=== PATIENT | female | born 1960 | race African-American/Black ===

== ENCOUNTER 2017-09-11 19:23 | Observation (INO) | payer OTHER ==
[~2017-09-11] VITALS: Ht 170.2 cm; Wt 90.0 kg
[~2017-09-11 19:23] MED LIST: CLIN1CAP6 PO; CLON.2 PO; CLOP75 PO; DIAZ5 PO; FURO20 PO; GABA300C3 PO; GLUC1000 PO; LEVEMIR SQ; LOSA50TA PO; NOVOLOGSS SQ; PRAV20 PO
--- NOTE | 2017-09-11 19:32 | PD ---
HPI Chief Complaint: altered mental status Time Seen by Provider: 19:28 Travel History International Travel<30 days: No Contact w/Intl Traveler<30days: No History of Present Illness HPI The patient is a 56 year old female who presents to the [facility] emergency department with a history of arriving to work with confusion. The patient on arrival was noted by the staff to be leaning against the wall near the time clock. The patient reported to the nursing staff that the patient has had difficulty keeping her blood sugar up today. 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 The patient's initial blood sugar on arrival here is 117. The patient was given by mouth hydration and her blood sugar came up to 129. She reports that throughout the day today she has been taking multiple glucose tablets and ingesting doughnuts to maintain her blood sugar. The patient reports that she just does not feel normal. She reports that she feels weak all over. The patient reports that whenever her blood sugar goes down she develops a right sided headache that feels like she was punched in the right eye. She also reports having nausea without vomiting. The patient reports that when her blood sugar gets low makes her feel anxious and short of breath. She denies having any chest pain or chest pressure. She denies having any known fevers, however she recently has been experiencing some night sweats. She has not checked her temperature at home. Otherwise all review of systems she denies any recent cough, congestion, neck pain, abdominal pain, vomiting, diarrhea, urinary symptoms, one-sided weakness, numbness or tingling to her extremities, or facial droop. The patient does report having a sensation of feeling drunk and off balance although she has not been drinking any alcohol. 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 The patient reports that when she got off she ate a meal and then went to bed at approximately 8:30 AM. She reports that she awakened again between 1:30 and 2 PM. She reports that she ate again a possible meal and pears. She then again went to bed and awoke at 4: 30 PM sweating. She was concerned that her blood sugar may be low. She checked it and it was noted to be 34. She reports that she was not hungry at the time and was actually nauseated. She reports that because of this she did not eat. She did take 2 sugar tablets and drink sweet tea. He continued to be low, therefore she did eat 2 pastries. [facility] Past Medical History Narrative Medical The Patient's past medical history is significant for type 1 diabetes mellitus, hypertension, hyperlipidemia, history of insomnia. Heart Rhythm Problems: No Cancer: No Cardiac Catheterization: Yes (IN 2004) Cardiovascular Problems: Yes High Cholesterol: Yes Chest Pain: No Congestive Heart Failure: No Diabetes: Yes Diminished Hearing: No Endocrine: Yes Genitourinary: No Hypertension: Yes Immune Disorder: No Musculoskeletal: No Neurologic: No Psychiatric: No Reproductive: No Respiratory: No Thyroid Disease: No Past Surgical History Narrative Surgical The patient's past surgical history is significant for hysterectomy. Abdominal Surgery: No Cardiac Surgery: Yes (cardiac cath) Ear Surgery: No Endocrine Surgery: No Eye Surgery: No Genitourinary Surgery: No Gynecologic Surgery: Yes (hysterectomy) Hysterectomy: Yes Oral Surgery: No Thoracic Surgery: No Other Surgery: Yes Social History Alcohol Use: No Tobacco Use: Yes (1 PK A DAY) Substance Use: No Allergies-Medications (Allergen,Severity, Reaction): Coded Allergies: benazepril (Unverified Allergy, Severe, ENGIOEDEMA, 09/11/17) captopril (Unverified Allergy, Severe, ENGIOEDEMA, 09/11/17) enalaprilat (Unverified Allergy, Severe, ENGIOEDEMA, 09/11/17) fosinopril (Unverified Allergy, Severe, ENGIOEDEMA, 09/11/17) lisinopril (Unverified Allergy, Severe, ENGIOEDEMA, 09/11/17) morphine (Unverified Allergy, Severe, RASH, 09/11/17) quinapril (Unverified Allergy, Severe, ENGIOEDEMA, 09/11/17) Sulfa (Sulfonamide Antibiotics) (Unverified Allergy, Intermediate, RASH, 09/11/17) HIVES adhesive (Unverified Allergy, Intermediate, 06/14/17) RASH Reported Meds & Prescriptions Reported Meds & Active Scripts Active Reported Flexeril (Cyclobenzaprine HCl) 10 Mg Tab 10 Mg PO TID PRN Zaleplon 10 Mg Cap 10 Mg PO HS PRN Diazepam 5 Mg Tab 5 Mg PO BID PRN Nifedipine ER 24 HR (Nifedipine) 60 Mg Tab 60 Mg PO DAILY Pravastatin 20 Mg Tab 20 Mg PO DAILY Metformin (Metformin HCl) 500 Mg Tab 1,000 Mg PO BIDPC Losartan (Losartan Potassium) 50 Mg Tab 50 Mg PO DAILY Tresiba Flextouch Pen Inj (Insulin Degludec Inj) 300 unit/3 ML Pen 8 Units SQ HS Novolog Flexpen Inj (Insulin Aspart) 300 Unit/3 Ml Pen 12 Units SQ ACHS Gabapentin 300 Mg Cap 300 Mg PO BID Lasix (Furosemide) 20 Mg Tab 10 Mg PO BID Plavix (Clopidogrel Bisulfate) 75 Mg Tab 75 Mg PO DAILY Review of Systems Except as stated in HPI: all other systems reviewed are Neg General / Constitutional: No: Fever Eyes: No: Visual changes HENT: Positive: Headaches, No: Rhinorrhea, Congestion, Neck Stiffness, Neck Pain Cardiovascular: Positive: Dyspnea on exertion, No: Chest Pain or Discomfort Respiratory: Positive: Shortness of Breath, No: Cough Gastrointestinal: Positive: Nausea, No: Vomiting, Diarrhea, Abdominal Pain, Changes in Bowel Habits, Indigestion, Loss of Appetite Genitourinary: No: Dysuria Musculoskeletal: No: Pain Skin: No Rash Neurologic: Positive: Weakness (generalized weakness), Coordination Problem, Ataxia, Headache, No: Change in Mentation, Slurred Speech, Sensory Disturbance Psychiatric: No: Depression Endocrine: Positive: Other (night sweats), No: Polydipsia Hematologic/Lymphatic: No: Easy Bruising Physical Exam Narrative General: The patient is a well-developed well-nourished female, in no acute distress, however confused on arrival. Head and Neck exam: Head is normocephalic atraumatic. Eyes: EOMI, pupils are equal round and reactive to light. Nose: Midline septum with pink mucous membranes Mouth: Dentition unremarkable. Moist mucus membranes. Posterior oropharynx is not erythematous. No tonsillar hypertrophy. Uvula midline. Airway patent. Neck: No palpable lymphadenopathy. No nuchal rigidity. No thyromegaly. Cardiovascular: Regular rate and rhythm without murmurs, gallops, or rubs. Lungs: Clear to auscultation bilaterally. No wheezes, rhonchi, or rales. Abdomen: Soft, without tenderness to palpation in all 4 quadrants of the abdomen. No guarding, rebound, or rigidity. Normal bowel sounds are audible. No tenderness on palpation of McBurney's point. Extremities: No clubbing, cyanosis, or edema. 2+ pulses in all 4 extremities. No calf tenderness on palpation. Back: No spinous process tenderness to palpation. No costovertebral angle tenderness to palpation. Neurologic Exam: On initial examination the patient has no evidence of facial asymmetry. She has generalized weakness on examination of all extremities. She denies having any change in sensation on palpation of her dermatomes. The patient has an unsteady gait. On reexamination, the patient has: Cranial nerves 2-12 were intact on exam. Strength is 5/5 in all 4 extremities. No sensory deficits noted. No dysdiadochokinesis. Good finger to nose and Heel to doll bilaterally. Skin Exam: No rash noted. Intact skin that is warm and dry. Data Data Last Documented VS Vital Signs Date Time Temp Pulse Resp B/P (MAP) Pulse Ox O2 Delivery O2 Flow Rate FiO2 09/11/17 20:40 97 Room Air 09/11/17 19:42 98.0 85 16 Orders Orders Electrocardiogram (09/11/17:28) Complete Blood Count With Diff (09/11/17:) Comprehensive Metabolic Panel (09/11/17:) Creatine Kinase (Cpk) (09/11/17 19:28) Ckmb (Isoenzyme) Profile (09/11/17:28) Troponin I (09/11/17:) B-Type Natriuretic Peptide (09/11/17:28) Prothrombin Time / Inr (Pt) (09/11/17:) Act Partial Throm Time (Ptt) (09/11/17:28) C-Reactive Protein (Crp) (09/11/17:) Lipase (09/11/17:28) Urinalysis - C+S If Indicated (09/11/17:28) Magnesium (Mg) (09/11/17:28) Chest, Single Ap (09/11/17 19:28) Ct Brain W/O Iv Contrast(Rout) (09/11/17 19:28) Iv Access Insert/Monitor (09/11/17:28) Ecg Monitoring (09/11/17:28) Oximetry (09/11/17:) Ammonia (09/11/17:) Ondansetron Inj (Zofran Inj) (09/11/17 20:30) Acetaminophen (Tylenol) (09/11/17 21:00) Admit Order (Ed Use Only) (09/11/17 22:22) Aspirin (Aspirin) (09/11/17 22:30) Labs Laboratory Tests Test 09/11/17 19:35 09/11/17 20:37 09/11/17 20:51 White Blood Count 6.3 TH/MM3 Red Blood Count 3.99 MIL/MM3 Hemoglobin 12.1 GM/DL Hematocrit 36.6 % Mean Corpuscular Volume 91.7 FL Mean Corpuscular Hemoglobin 30.3 PG Mean Corpuscular Hemoglobin Concent 33.1 % Red Cell Distribution Width 14.0 % Platelet Count 330 TH/MM3 Mean Platelet Volume 7.4 FL Neutrophils (%) (Auto) 46.7 % Lymphocytes (%) (Auto) 42.1 % Monocytes (%) (Auto) 8.2 % Eosinophils (%) (Auto) 2.3 % Basophils (%) (Auto) 0.7 % Neutrophils # (Auto) 3.0 TH/MM3 Lymphocytes # (Auto) 2.7 TH/MM3 Monocytes # (Auto) 0.5 TH/MM3 Eosinophils # (Auto) 0.1 TH/MM3 Basophils # (Auto) 0.0 TH/MM3 CBC Comment DIFF FINAL Differential Comment Prothrombin Time 9.7 SEC Prothromb Time International Ratio 0.9 RATIO Activated Partial Thromboplast Time 25.7 SEC Blood Urea Nitrogen 12 MG/DL Creatinine 0.73 MG/DL Random Glucose 120 MG/DL Total Protein 7.2 GM/DL Albumin 3.7 GM/DL Calcium Level 8.7 MG/DL Magnesium Level 1.5 MG/DL Alkaline Phosphatase 103 U/L Aspartate Amino Transf (AST/SGOT) 18 U/L Alanine Aminotransferase (ALT/SGPT) 17 U/L Total Bilirubin 0.4 MG/DL Sodium Level 137 MEQ/L Potassium Level 3.6 MEQ/L Chloride Level 104 MEQ/L Carbon Dioxide Level 24.9 MEQ/L Anion Gap 8 MEQ/L Estimat Glomerular Filtration Rate 101 ML/MIN Total Creatine Kinase 78 U/L Troponin I LESS THAN 0.02 NG/ML C-Reactive Protein LESS THAN 0.29 MG/DL B-Type Natriuretic Peptide 52 PG/ML Lipase 118 U/L Urine Color YELLOW Urine Turbidity CLEAR Urine pH 6.0 Urine Specific Storden 1.009 Urine Protein NEG mg/dL Urine Glucose (UA) 300 mg/dL Urine Ketones NEG mg/dL Urine Occult Blood NEG Urine Nitrite NEG Urine Bilirubin NEG Urine Urobilinogen LESS THAN 2.0 MG/DL Urine Leukocyte Esterase SMALL Urine RBC 1 /hpf Urine WBC 1 /hpf Urine Squamous Epithelial Cells 2 /hpf Microscopic Urinalysis Comment CULT NOT INDICATED Ammonia 21 MCMOL/L MDM Medical Decision Making Medical Screen Exam Complete: Yes Emergency Medical Condition: Yes Medical Record Reviewed: Yes Interpretation(s) Last Impressions Head CT 09/11/[id number] Signed Impressions: Service Date/Time: Monday, September 11, 2017 19:28 - CONCLUSION: No acute intracranial abnormality is identified. Jigar Andre MD Chest X-Ray 09/11/[id number] Signed Impressions: Service Date/Time: Monday, September 11, 2017 19:58 - CONCLUSION: No acute cardiopulmonary abnormality is identified. Jigar Andre MD Differential Diagnosis Hypoglycemia, versus other intracranial abnormality, versus metabolic encephalopathy Narrative Course During the course of the patients emergency department visit, the patients history, examination, and differential diagnosis were reviewed with the patient. The patient was placed on a plug overwrap machine tender with oximetry and frequent blood pressure monitoring. The patient had IV access obtained and blood work sent for analysis. ECG shows a sinus rhythm heart rate of 70, no acute ST segment elevation or depression, QRS duration is 86 ms, QTC 429 ms. The patient was initially provided Zofran 4 mg IV. The patient was started on regular diet to increase her blood sugar. The patient's repeat blood sugar was 277 The patients laboratory studies were reviewed and remarkable for a white count 6.3, hemoglobin 12.1, platelets 3:30 with 8.2 monocytes, CMP is remarkable for glucose of 120 which was collected prior to the repeat blood sugar above, CPK 78 , troponin I less than 0.02, C-reactive protein less than 0.29, BNP 52, lipase 118, PT 9.7, PTT 25.7, urinalysis shows 300 glucose, small leukocyte esterase otherwise unremarkable. Ammonia level is within normal limits Radiology studies were reviewed and remarkable for a chest x-ray shows no acute cardiopulmonary abnormality. CT scan of the brain shows no acute intracranial abnormality. On reexamination the patient continues to be unsteady on her feet and reportedly feels off. Unfortunately, the MRI machine is currently down. The patient was agreeable with the plan to be admitted to the hospital for continued observation regarding her hypoglycemic event and repeat neuro exams. The patients results were discussed with the patient, including the plan of care. I explained that further testing and/ or monitoring is indicated based on the patients history, examination, and/ or laboratory findings. Therefore, I recommended admission for additional evaluation. The patient expressed understanding and was agreeable with this plan. The patient was admitted to the hospital in stable condition and [facility] Physician Communication Physician Communication The patient's case was discussed with Dr. Serrato who did agree to admit the patient for further evaluation and treatment at this time. Diagnosis Primary Impression: Altered mental status Qualified Codes: R41.82 - Altered mental status, unspecified Additional Impression: Unsteady gait Admitting Information Admitting Physician Requests: Observation Manuela Sandoval MD Sep 11, 2017 19:32
[2017-09-11 19:36] VITALS: RESP 16
[2017-09-11 19:42] VITALS: BP 137/70; PULSE 85; RESP 16; TEMP 98; O2SAT 99
--- NOTE | 2017-09-11 19:49 | RADRPT ---
EXAM DATE/TIME: 09/11/2017 19:28 [facility] COMPARISON: CT BRAIN W/O CONTRAST, July 08, 2014, 20:46. INDICATIONS : Altered mental status. RADIATION DOSE: 56.35 CTDIvol (mGy) MEDICAL HISTORY : Diabetes mellitus type 2. SURGICAL HISTORY : None. ENCOUNTER: Initial ACUITY: 1 day PAIN SCALE: Non-responsive LOCATION: cranial TECHNIQUE: Multiple contiguous axial images were obtained of the head. Using automated exposure control and adj ustment of the mA and/or kV according to patient size, radiation dose was kept as low as reasonably a chievable to obtain optimal diagnostic quality images. DICOM format image data is available electro nically for review and comparison. FINDINGS: CEREBRUM: The ventricles are normal. No evidence of midline shift, mass lesion, hemorrhage or acute infarction . No extra-axial fluid collections are seen. POSTERIOR FOSSA: The cerebellum and brainstem are intact. The 4th ventricle is midline. The cerebellopontine angle i s unremarkable. EXTRACRANIAL: Visualized sinuses are clear. SKULL: The calvaria is intact. No evidence of skull fracture. CONCLUSION: No acute intracranial abnormality is identified. Jigar Andre MD on September 11, 2017 at 19:46 Board Certified Radiologist. This report was verified electronically.
[2017-09-11] MEDS ORDERED: PRAV20TA2 PO (20:00)
[2017-09-11] MEDS ORDERED: GABA300C5 PO (20:00)
[2017-09-11] MEDS ORDERED: METF500T PO (20:00)
[2017-09-11] MEDS ORDERED: LOSA50TA PO (20:00)
[2017-09-11] MEDS ORDERED: NIFE60TA58 PO (20:00)
[2017-09-11] MEDS ORDERED: DIAZ5TAB PO (20:00)
[2017-09-11] MEDS ORDERED: NOVOINJ3 SQ (20:00)
[2017-09-11] MEDS ORDERED: INSU1INJ14 SQ (20:00)
[2017-09-11] MEDS ORDERED: PLAV75TA29 PO (20:00)
[2017-09-11] MEDS ORDERED: ZALE10CA PO (20:00)
[2017-09-11] MEDS ORDERED: FURO1TAB62 PO (20:00)
[2017-09-11] MEDS ORDERED: CYCL10TA PO (20:00)
[2017-09-11 20:03] LABS: BASOPHIL % 0.7 % (0.0-2.0); EOSINOPHIL # 0.1 TH/MM3 (0-0.4); EOSINOPHIL % 2.3 % (0.0-4.0); HEMATOCRIT 36.6 % (35.0-46.0); HEMO FLAGS DIFF FINAL; LYMPH % 42.1 % (9.0-44.0); LYMPHOCYTE # 2.7 TH/MM3 (1.0-4.8); MEAN CELL VOLUME 91.7 FL (80.0-100.0); MEAN CORPUSCULAR HEMOGLOBIN 30.3 PG (27.0-34.0); MEAN CORPUSCULAR HGB CONC 33.1 % (32.0-36.0); MONO % 8.2 % (0.0-8.0); NEUT % 46.7 % (16.0-70.0); PLATELET COUNT 330 TH/MM3 (150-450); RED BLOOD COUNT 3.99 MIL/MM3 (4.00-5.30); WHITE BLOOD COUNT 6.3 TH/MM3 (4.0-11.0)
[2017-09-11 20:16] LABS: APTT (PATIENT) 25.7 SEC (24.3-30.1); INTERNATIONAL NORMALIZED RATIO 0.9 RATIO; PROTHROMBIN TIME - PATIENT 9.7 SEC (9.8-11.6)
--- NOTE | 2017-09-11 20:17 | RADRPT ---
EXAM DATE/TIME: 09/11/2017 19:58 [facility] COMPARISON: CHEST SINGLE AP, July 08, 2014, 20:55. INDICATIONS : Cough. MEDICAL HISTORY : None. SURGICAL HISTORY : None. ENCOUNTER: Initial ACUITY: 1 day PAIN SCORE: 0/10 LOCATION: Bilateral chest FINDINGS: Portable AP view of the chest demonstrates a normal-sized cardiac silhouette. No effusion, consolidat ion, or pneumothorax is visualized. The bones and soft tissues demonstrate no acute abnormality. Lung s are underinflated. CONCLUSION: No acute cardiopulmonary abnormality is identified. Jigar Andre MD on September 11, 2017 at 20:15 Board Certified Radiologist. This report was verified electronically.
[2017-09-11 20:28] LABS: ANION GAP 8 MEQ/L (5-15); AST (GOT) 18 U/L (15-37); BICARBONATE 24.9 MEQ/L (21.0-32.0); BLOOD UREA NITROGEN 12 MG/DL (7-18); CHLORIDE 104 MEQ/L (98-107); GLOMERULAR FILTRATION RATE 101 ML/MIN (>89); MAGNESIUM 1.5 MG/DL (1.5-2.5); POTASSIUM 3.6 MEQ/L (3.5-5.1); SODIUM (NA) 137 MEQ/L (136-145)
[2017-09-11] MEDS ORDERED: ONDANSETRON HCL 4 MG/2 ML VIAL IV ONE (20:30)
[2017-09-11 20:31] LABS: ALKALINE PHOSPHATASE 103 U/L (45-117); ALT (GPT) 17 U/L (10-53); TOTAL BILIRUBIN ADULT 0.4 MG/DL (0.2-1.0)
[2017-09-11 20:32] LABS: CREATINE KINASE 78 U/L (26-192)
[2017-09-11 20:40] VITALS: O2SAT 97
[2017-09-11] MEDS ORDERED: ACETAMINOPHEN 325 MG TAB PO ONE (21:00)
[2017-09-11 21:09] LABS: BLOOD, URINE NEG (NEG); COMMENT (UR) CULT NOT INDICATED; CULTURE IF INDICATED CULT NOT INDICATED; GLUCOSE,URINE 300 mg/dL (NEG); KETONE, URINE NEG (NEG); NITRITE,URINE NEG (NEG); SQUAMOUS EPITHELIAL CELL URINE 2 /hpf (0-5); URINE COLOR YELLOW (YELLW/STRAW)
[2017-09-11 22:25] VITALS: BP 132/63; PULSE 80; RESP 16; O2SAT 97
[2017-09-11] MEDS ORDERED: ASPIRIN 325 MG TAB PO ONE (22:30)
[2017-09-11] MEDS ORDERED: ONDANSETRON HCL 4 MG/2 ML VIAL IVP PRN (22:45)
[2017-09-11] MEDS ORDERED: NALOXONE HCL 0.4 MG/ML AMP IV PUSH PRN (22:45)
[2017-09-11] MEDS ORDERED: SODIUM CHLORIDE 0.9% FLUSH 10 ML FLUSH IV FLUSH PRN (22:45)
[2017-09-11] MEDS ORDERED: ZALEPLON 10 MG CAP PO PRN (22:45)
[2017-09-11] MEDS ORDERED: MAGNESIUM HYDROXIDE SUSP 30 ML CUP PO PRN (22:45)
[2017-09-11] MEDS ORDERED: ACETAMINOPHEN 325 MG TAB PO PRN (22:45)
[2017-09-11] MEDS ORDERED: DEXTROSE 50% IN WATER 50 ML VIAL(D50) IV PUSH PRN (23:00)
[2017-09-11] MEDS ORDERED: GLUCAGON 1 MG/ML VIAL OTHER PRN (23:00)
[2017-09-12] VITALS (12 sets, daily range): BP systolic 122–180; BP diastolic 59–90; PULSE 61–86; RESP 18–24; TEMP 97.6–98.8; O2SAT 97–100
[2017-09-12 00:55] LABS: FREE T4 1.11 NG/DL (0.76-1.46)
[2017-09-12] MEDS ORDERED: INSULIN ASPART 1,000 UNITS/10 ML VIAL SQ ONE (03:45)
[2017-09-12 04:19] LABS: AUTOMATED NEUTROPHIL # 2.7 TH/MM3 (1.8-7.7); BASOPHIL # 0.1 TH/MM3 (0-0.2); BASOPHIL % 1.2 % (0.0-2.0); EOSINOPHIL # 0.1 TH/MM3 (0-0.4); HEMATOCRIT 34.9 % (35.0-46.0); HEMO FLAGS DIFF FINAL; LYMPH % 41.3 % (9.0-44.0); LYMPHOCYTE # 2.3 TH/MM3 (1.0-4.8); MEAN CORPUSCULAR HEMOGLOBIN 29.8 PG (27.0-34.0); MEAN CORPUSCULAR HGB CONC 32.4 % (32.0-36.0); MONO % 5.6 % (0.0-8.0); NEUT % 49.9 % (16.0-70.0); PLATELET COUNT 280 TH/MM3 (150-450); WHITE BLOOD COUNT 5.4 TH/MM3 (4.0-11.0)
[2017-09-12 04:40] LABS: BICARBONATE 27.9 MEQ/L (21.0-32.0); POTASSIUM 4.2 MEQ/L (3.5-5.1)
[2017-09-12] MEDS: INSULIN ASPART SUPPLEMENTAL SCALE SQ SCH ×6 (05:12→20:53)
[2017-09-12] MEDS ORDERED: INSULIN ASPART SUPPLEMENTAL SCALE SQ SCH (08:00)
[2017-09-12] MEDS ORDERED: INSULIN ASPART 1,000 UNITS/10 ML VIAL SQ SCH (08:00)
--- NOTE | 2017-09-12 08:32 | HHI.HP ---
HPI Service [facility] Hospitalists Primary Care Physician Huey Harris MD Admission Diagnosis AMS, unsteady gait Chief Complaint: "low blood sugar" Travel History International Travel<30 Days: No Contact w/Intl Traveler <30 Da: No Traveled to Known Affected Are: No History of Present Illness Ms. Maldonado is a 56 y/o AAF with a hx of type 1 diabetes, HTN, hyperlipidemia, TIA (on Plavix) and tobacco use. She works here at [employer] [facility] [place] and last night while working she developed confusion, nausea, and disorientation. She reportedly has a history of recurrent such episodes usually related to blood sugar abnormalities. Pt states that in the past she has always had trouble controlling her blood glucose. She is currently taking NovoLog FlexPen 12 Units ACHS, Tresiba 8 Units QHS and Metformin 500 mg PO BID. Per review of ER notes patient arrived to work with confusion. The patient on arrival was noted by the staff to be leaning against the wall near the time clock. The patient reported to the nursing staff that the patient has had difficulty keeping her blood sugar up. 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 The patient's initial blood sugar on arrival here is 117. The patient was given by mouth hydration and her blood sugar came up to 129. She reports that throughout her shift she has been taking multiple glucose tablets and ingesting doughnuts to maintain her blood sugar. The patient reports that she just does not feel normal. She reports that she feels weak all over. The patient reports that whenever her blood sugar goes down she develops a right sided headache that feels like she was punched in the right eye. She also reports having nausea without vomiting. She denies having any known fevers. She has not checked her temperature at home. Patient denies any recent cough, congestion, abdominal pain, vomiting, diarrhea, urinary symptoms, uni-later weakness, numbness or tingling to her extremities, or facial droop. The patient does report having a sensation of feeling drunk and off balance although she has not been drinking any alcohol. Review of Systems Constitutional: COMPLAINS OF: Chills, DENIES: Fever Eyes: DENIES: Blurred vision, Vision loss, Double Vision Respiratory: DENIES: Cough, Sputum production Cardiovascular: DENIES: Chest pain, Palpitations, Dyspnea on Exertion, Lower Extremity Edema Gastrointestinal: COMPLAINS OF: Abdominal pain, Nausea, DENIES: Diarrhea, Vomiting Genitourinary: COMPLAINS OF: Urinary frequency, DENIES: Urgency, Dysuria Neurologic: DENIES: Abnormal gait, Headache, Localized weakness, Speech Problems Psychiatric: COMPLAINS OF: Anxiety, Confusion, DENIES: Depression Past Family Social History Past Medical History type 1 diabetes mellitus, hypertension, hyperlipidemia, history of insomnia and TIA on plavix. Past Surgical History hysterectomy. Reported Medications Flexeril (Cyclobenzaprine HCl) 10 Mg Tab 10 Mg PO TID PRN Zaleplon 10 Mg Cap 10 Mg PO HS PRN Diazepam 5 Mg Tab 5 Mg PO BID PRN Nifedipine ER 24 HR (Nifedipine) 60 Mg Tab 60 Mg PO DAILY Pravastatin 20 Mg Tab 20 Mg PO DAILY Metformin (Metformin HCl) 500 Mg Tab 1,000 Mg PO BIDPC Losartan (Losartan Potassium) 50 Mg Tab 50 Mg PO DAILY Tresiba Flextouch Pen Inj (Insulin Degludec Inj) 300 unit/3 ML Pen 8 Units SQ HS Novolog Flexpen Inj (Insulin Aspart) 300 Unit/3 Ml Pen 12 Units SQ ACHS Gabapentin 300 Mg Cap 300 Mg PO BID Lasix (Furosemide) 20 Mg Tab 10 Mg PO BID Plavix (Clopidogrel Bisulfate) 75 Mg Tab 75 Mg PO DAILY Allergies: Coded Allergies: benazepril (Unverified Allergy, Severe, ENGIOEDEMA, 09/11/17) captopril (Unverified Allergy, Severe, ENGIOEDEMA, 09/11/17) enalaprilat (Unverified Allergy, Severe, ENGIOEDEMA, 09/11/17) fosinopril (Unverified Allergy, Severe, ENGIOEDEMA, 09/11/17) lisinopril (Unverified Allergy, Severe, ENGIOEDEMA, 09/11/17) morphine (Unverified Allergy, Severe, RASH, 09/11/17) quinapril (Unverified Allergy, Severe, ENGIOEDEMA, 09/11/17) Sulfa (Sulfonamide Antibiotics) (Unverified Allergy, Intermediate, RASH, 09/11/17) HIVES adhesive (Unverified Allergy, Intermediate, 06/14/17) RASH Active Ordered Medications Current Medications Medications (Trade) Dose Ordered Sig/Doris Route Start Time Stop Time Status Last Admin (NS Flush) 2 ml UNSCH PRN IV FLUSH 09/11/17 22:45 (NS Flush) 2 ml BID IV FLUSH 09/12/17 09:00 (Tylenol) 650 mg Q4H PRN PO 09/11/17 22:45 (Zofran Inj) 4 mg Q6H PRN IVP 09/11/17 22:45 (Narcan Inj) 0.4 mg UNSCH PRN IV PUSH 09/11/17 22:45 (Milk Of Magnesia Liq) 30 ml Q12H PRN PO 09/11/17 22:45 (Plavix) 75 mg DAILY PO 09/12/17 09:00 (Neurontin) 300 mg BID PO 09/12/17 09:00 (Cozaar) 50 mg DAILY PO 09/12/17 09:00 (Procardia Xl) 60 mg DAILY PO 09/12/17 09:00 (Pravachol) 20 mg DAILY PO 09/12/17 09:00 (Sonata) 10 mg HS PRN PO 09/11/17 22:45 (D50w (Vial) Inj) 50 ml UNSCH PRN IV PUSH 09/11/17 23:00 (Glucagon Inj) 1 mg UNSCH PRN OTHER 09/11/17 23:00 (NovoLOG SUPPLEMENTAL SCALE) 1 ACHS SLIDING SCALE SQ 09/12/17 04:30 09/12/17 05:12 (Glucophage) 1,000 mg BIDPC PO 09/12/17 09:00 (NovoLOG INJ) 12 units ACHS SQ 09/12/17 08:00 Family History Father with history of pancreatic cancer Father and sister with diabetes mellitus Social History (+)Tobacco use, smokes 1-2 ppd Denies any regular alcohol use, maybe 1-2 times per month she will have a few drinks Physical Exam Vital Signs Vital Signs Date Time Temp Pulse Resp B/P (MAP) Pulse Ox O2 Delivery O2 Flow Rate FiO2 09/12/17 04:45 74 09/12/17 04:03 98.7 62 18 138/72 (94) 100 09/12/17 00:48 71 09/12/17 00:19 98.4 76 18 161/72 (101) 97 09/11/17 22:25 80 16 132/63 (86) 97 Room Air 09/11/17 20:40 97 Room Air 09/11/17 19:42 98.0 85 16 137/70 (92) 99 Room Air 09/11/17 19:36 16 Physical Exam GENERAL: This is a well-nourished, well-developed patient does not appear herself appears confused SKIN: No rashes, ecchymoses or lesions. Cool and dry. HEAD: Atraumatic. Normocephalic. No temporal or scalp tenderness. EYES: Extraocular motions intact. No scleral icterus. No injection or drainage. CARDIOVASCULAR: Regular rate and rhythm RESPIRATORY: Clear to auscultation. Breath sounds equal bilaterally. GASTROINTESTINAL: Abdomen soft, non-tender, nondistended. No guarding. MUSCULOSKELETAL: Extremities without clubbing, cyanosis, or edema. No joint tenderness, effusion, or edema noted. No calf tenderness. Negative Homans sign bilaterally. NEUROLOGICAL: Awake and alert. RLE weaker than left patient. Motor and sensory grossly within normal limits. Five out of 5 muscle strength in all muscle groups , with the exception of RLE weaker than L. Rambling speech. Laboratory Laboratory Tests Test 09/11/17 19:35 09/11/17 20:37 09/11/17 20:51 09/12/17 00:00 White Blood Count 6.3 Red Blood Count 3.99 Hemoglobin 12.1 Hematocrit 36.6 Mean Corpuscular Volume 91.7 Mean Corpuscular Hemoglobin 30.3 Mean Corpuscular Hemoglobin Concent 33.1 Red Cell Distribution Width 14.0 Platelet Count 330 Mean Platelet Volume 7.4 Neutrophils (%) (Auto) 46.7 Lymphocytes (%) (Auto) 42.1 Monocytes (%) (Auto) 8.2 Eosinophils (%) (Auto) 2.3 Basophils (%) (Auto) 0.7 Neutrophils # (Auto) 3.0 Lymphocytes # (Auto) 2.7 Monocytes # (Auto) 0.5 Eosinophils # (Auto) 0.1 Basophils # (Auto) 0.0 CBC Comment DIFF FINAL Differential Comment Prothrombin Time 9.7 Prothromb Time International Ratio 0.9 Activated Partial Thromboplast Time 25.7 Blood Urea Nitrogen 12 Creatinine 0.73 Random Glucose 120 Total Protein 7.2 Albumin 3.7 Calcium Level 8.7 Magnesium Level 1.5 Alkaline Phosphatase 103 Aspartate Amino Transf (AST/SGOT) 18 Alanine Aminotransferase (ALT/SGPT) 17 Total Bilirubin 0.4 Sodium Level 137 Potassium Level 3.6 Chloride Level 104 Carbon Dioxide Level 24.9 Anion Gap 8 Estimat Glomerular Filtration Rate 101 Total Creatine Kinase 78 Troponin I LESS THAN 0.02 C-Reactive Protein LESS THAN 0.29 B-Type Natriuretic Peptide 52 Lipase 118 Urine Color YELLOW Urine Turbidity CLEAR Urine pH 6.0 Urine Specific [place] 1.009 Urine Protein NEG Urine Glucose (UA) 300 Urine Ketones NEG Urine Occult Blood NEG Urine Nitrite NEG Urine Bilirubin NEG Urine Urobilinogen LESS THAN 2.0 Urine Leukocyte Esterase SMALL Urine RBC 1 Urine WBC 1 Urine Squamous Epithelial Cells 2 Microscopic Urinalysis Comment CULT NOT INDICATED Ammonia 21 Vitamin B12 Level 211 Folate 15.6 Free Thyroxine 1.11 Thyroid Stimulating Hormone 3rd Gen 0.494 Test 09/12/17 03:49 White Blood Count 5.4 Red Blood Count 3.80 Hemoglobin 11.3 Hematocrit 34.9 Mean Corpuscular Volume 92.0 Mean Corpuscular Hemoglobin 29.8 Mean Corpuscular Hemoglobin Concent 32.4 Red Cell Distribution Width 14.0 Platelet Count 280 Mean Platelet Volume 7.5 Neutrophils (%) (Auto) 49.9 Lymphocytes (%) (Auto) 41.3 Monocytes (%) (Auto) 5.6 Eosinophils (%) (Auto) 2.0 Basophils (%) (Auto) 1.2 Neutrophils # (Auto) 2.7 Lymphocytes # (Auto) 2.3 Monocytes # (Auto) 0.3 Eosinophils # (Auto) 0.1 Basophils # (Auto) 0.1 CBC Comment DIFF FINAL Differential Comment Blood Urea Nitrogen 10 Creatinine 0.78 Random Glucose 491 Calcium Level 8.6 Sodium Level 136 Potassium Level 4.2 Chloride Level 101 Carbon Dioxide Level 27.9 Anion Gap 7 Estimat Glomerular Filtration Rate 93 Result Diagram: 09/12/17 0349 09/12/17348 Imaging Last Impressions Brain MRI 09/12/17 0000 Signed Impressions: Service Date/Time: Tuesday, September 12, 2017 08:00 - CONCLUSION: 1. No acute intracranial abnormality. 2. Mild chronic small vessel ischemic change. Indra Dwyer Jr., MD Head CT [id number]/11/171927 Signed Impressions: Service Date/Time: Monday, September 11, 2017 19:28 - CONCLUSION: No acute intracranial abnormality is identified. Jigar Andre MD Chest X-Ray 09/11/171927 Signed Impressions: Service Date/Time: Monday, September 11, 2017 19:58 - CONCLUSION: No acute cardiopulmonary abnormality is identified. MD Paolo Sanchez VTE Risk Assessment Caprini VTE Risk Assessment: No/Low Risk (score <= 1) Caprini Risk Assessment Model Point Value = 1 Point Value = 2 Point Value = 3 Point Value = 5 Age 41-60 Minor surgery BMI > 25 kg/m2 Swollen legs Varicose veins or History of unexplained or recurrent spontaneous Oral contraceptives or hormone replacement Sepsis (< 1 month) Serious lung disease, including pneumonia (< 1 month) Abnormal pulmonary function Acute myocardial infarction Congestive heart failure (< 1 month) History of inflammatory bowel disease Medical patient at bed rest Age 61-74 Arthroscopic surgery Major open surgery (> 45 min) Laparoscopic surgery (> 45 min) Malignancy Confined to bed (> 72 hours) Immobilizing plaster cast Central venous access Age >= 75 History of VTE Family history of VTE Factor V Leiden Prothrombin [id number] Lupus anticoagulant Anticardiolipin antibodies Elevated serum homocysteine Heparin-induced thrombocytopenia Other congenital or acquired thrombophilia Stroke (< 1 month) Elective arthroplasty Hip, pelvis, or leg fracture Acute spinal cord injury (< 1 month) Prophylaxis Regimen Total Risk Factor Score Risk Level Prophylaxis Regimen 0-1 Low Early ambulation 2 Moderate Order ONE of the following: *Sequential Compression Device (SCD) *Heparin 5000 units SQ BID 3-4 Higher Order ONE of the following medications: *Heparin 5000 units SQ TID *Enoxaparin/Lovenox 40 mg SQ daily (WT < 150 kg, CrCl > 30 mL/min) *Enoxaparin/Lovenox 30 mg SQ daily (WT < 150 kg, CrCl > 10-29 mL/min) *Enoxaparin/Lovenox 30 mg SQ BID (WT < 150 kg, CrCl > 30 mL/min) AND/OR *Sequential Compression Device (SCD) 5 or more Highest Order ONE of the following medications: *Heparin 5000 units SQ TID (Preferred with Epidurals) *Enoxaparin/Lovenox 40 mg SQ daily (WT < 150 kg, CrCl > 30 mL/min) *Enoxaparin/Lovenox 30 mg SQ daily (WT < 150 kg, CrCl > 10-29 mL/min) *Enoxaparin/Lovenox 30 mg SQ BID (WT < 150 kg, CrCl > 30 mL/min) AND *Sequential Compression Device (SCD) Assessment and Plan Problem List: (1) Altered mental status ICD Codes: R41.82 - Altered mental status Status: Acute Plan: AMS Hypoglycemia 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 Patient had several episodes of hypoglycemia through the night then presented to the ER for evaluation and treatment Patient has been a febrile and does not have Leukocytosis UA reviewed no culture indicated CXR reviewed and reveals: No acute cardiopulmonary process CT head reviewed and reveals: No acute intracranial process MRI brain reviewed and reveals no acute intracranial abnormality. Mild chronic small vessel ischemic changes. Hold home Tresiba and scheduled Novolog Accu checks ACHS with SSI continue home metformin 1000 mg PO BID HTN continue home regiment Losartan 50 mg PO daily, Nifedipine ER 60 mg PO daily monitor BP trend Hyperlipidemia Continue home Pravastatin 20 mg PO daily DVT prophylaxis with SCDs (2) Hypoglycemia ICD Codes: E16.2 - Hypoglycemia, unspecified Plan: see above (3) Diabetes mellitus ICD Codes: E11.9 - Type 2 diabetes mellitus without complications Plan: see above (4) HTN (hypertension) ICD Codes: I10 - Essential (primary) hypertension Plan: see above Problem Qualifiers (1) Altered mental status: Qualified Codes: R41.82 - Altered mental status, unspecified Meaghan Landon Sep 12, 2017 08:32
--- NOTE | 2017-09-12 08:35 | RADRPT ---
EXAM DATE/TIME: 09/12/2017 08:00 [place] COMPARISON: MRI BRAIN W/O CONTRAST, July 09, 2014, 15:18. INDICATIONS : CVA. Weakness. MEDICAL HISTORY : Hypertension. Diabetes mellitus type 2. SURGICAL HISTORY : Hysterectomy. ENCOUNTER: Initial ACUITY: 1 day PAIN SCORE: 0/10 LOCATION: head TECHNIQUE: Multiplanar, multisequence MRI of the brain was performed without contrast. FINDINGS: CEREBRUM: The ventricles are normal for age. No evidence of midline shift, mass lesion, hemorrhage or acute in farction. No extraaxial fluid collections are seen. The pituitary gland and suprasellar cistern are normal in configuration. WHITE MATTER: A few tiny punctate foci of high flair signal involving the periventricular white matter of the cereb ral hemispheres. POSTERIOR FOSSA: The cerebellum and brainstem are intact. The 4th ventricle is midline. The cerebellopontine angle is unremarkable. The cerebellar tonsils are normal in position. DIFFUSION IMAGING: No focal areas of restricted diffusion are seen. No evidence of acute infarction. EXTRACRANIAL: The visualized portions of the orbits and paranasal sinuses are unremarkable. CONCLUSION: 1. No acute intracranial abnormality. 2. Mild chronic small vessel ischemic change. Indra Dwyer Jr., MD on September 12, 2017 at 8:32 Board Certified Radiologist. This report was verified electronically.
[2017-09-12] MEDS ORDERED: DEXTROSE 50% IN WATER 50 ML VIAL(D50) IV PUSH PRN (08:45)
[2017-09-12] MEDS ORDERED: GLUCAGON 1 MG/ML VIAL OTHER PRN (08:45)
[2017-09-12] MEDS: SODIUM CHLORIDE 0.9% FLUSH 10 ML FLUSH IV FLUSH SCH ×2 (09:00→20:54)
[2017-09-12] MEDS: GABAPENTIN 300 MG CAP PO SCH ×2 (09:01→20:53)
[2017-09-12] MEDS: CLOPIDOGREL 75 MG TAB PO SCH (09:01)
[2017-09-12] MEDS: metFORMIN HCL 500 MG TAB PO SCH ×2 (09:01→18:25)
[2017-09-12] MEDS: LOSARTAN 50 MG TAB PO SCH (09:01)
[2017-09-12] MEDS: NIFEdipine 60 MG SUSTAINED RELEASE TAB PO SCH (09:01)
[2017-09-12] MEDS: PRAVASTATIN SOD 20 MG TAB PO SCH (09:02)
--- NOTE | 2017-09-12 19:18 | EKG ---
Date Performed: 09/12/2017 Time Performed: 03:19:41 PTAGE: 56 years EKG: Sinus rhythm WITH FIRST DEGREE AV BLOCK NONSPECIFIC T-WAVE ABNORMALITY ABNORMAL ECG Since PREVIOUS TRACING , no significant change noted PREVIOUS TRACIN09/11/2017 19.47 DOCTOR: Ramone Dean Interpretating Date/Time 09/12/2017 19:18:42
--- NOTE | 2017-09-12 19:18 | EKG ---
Date Performed: 09/11/2017 Time Performed: 19:47:34 PTAGE: 56 years EKG: Sinus rhythm NORMAL ECG Since PREVIOUS TRACING , no significant change noted PREVIOUS TRACIN07/24/2010 05.49 DOCTOR: Ramone Dean Interpretating Date/Time 09/12/2017 19:18:31
[2017-09-12] MEDS ORDERED: [UNRECOGNIZED DRUG - OTHER] SQ SCH ×2 (21:00)
[2017-09-12] MEDS ORDERED: INSULIN DEGLUDEC SQ SCH ×2 (21:00)
[2017-09-12] MEDS ORDERED: ACETAMINOPHEN 325 MG TAB PO PRN (22:30)
[2017-09-13 00:03] VITALS: PULSE 58
[2017-09-13 04:04] VITALS: PULSE 64
[2017-09-13 04:33] VITALS: BP 164/71; PULSE 72; RESP 18; TEMP 98.2; O2SAT 98
[2017-09-13 07:34] VITALS: BP 195/86; PULSE 59; RESP 24; TEMP 97.5; O2SAT 94
[2017-09-13] MEDS: CLOPIDOGREL 75 MG TAB PO SCH (08:38)
[2017-09-13] MEDS: LOSARTAN 50 MG TAB PO SCH (08:38)
[2017-09-13] MEDS: PRAVASTATIN SOD 20 MG TAB PO SCH (08:38)
[2017-09-13] MEDS: NIFEdipine 60 MG SUSTAINED RELEASE TAB PO SCH (08:38)
[2017-09-13] MEDS: metFORMIN HCL 500 MG TAB PO SCH (08:38)
[2017-09-13] MEDS: SODIUM CHLORIDE 0.9% FLUSH 10 ML FLUSH IV FLUSH SCH (08:39)
[2017-09-13] MEDS: GABAPENTIN 300 MG CAP PO SCH (08:39)
[2017-09-13] MEDS: INSULIN ASPART SUPPLEMENTAL SCALE SQ SCH ×2 (08:39→12:41)
--- NOTE | 2017-09-13 08:40 | HHI.PR ---
Subjective Remarks Patient sitting up in bed A&O asking to go home reports mild diffuse headache Objective Vitals Vital Signs Date Time Temp Pulse Resp B/P (MAP) Pulse Ox O2 Delivery O2 Flow Rate FiO2 09/13/17 07:34 97.5 59 24 195/86 (122) 94 09/13/17 04:33 98.2 72 18 164/71 (102) 98 09/13/17 04:04 64 09/13/17 00:03 58 09/12/17 23:57 97.9 61 18 122/59 (80) 98 09/12/17 21:54 98.2 69 19 124/69 (87) 100 09/12/17 20:06 71 09/12/17 20:06 71 09/12/17 16:12 97.6 81 22 143/70 (94) 99 09/12/17 15:31 68 09/12/17 12:26 98.0 86 24 127/62 (83) 99 09/12/17 08:39 98.8 72 24 180/90 (120) 98 Result Diagram: 09/12/17 0349 09/12/17 0349 Other Results Laboratory Tests Test 09/11/17 19:35 09/11/17 20:37 09/11/17 20:51 09/12/17 00:00 White Blood Count 6.3 TH/MM3 Red Blood Count 3.99 MIL/MM3 Hemoglobin 12.1 GM/DL Hematocrit 36.6 % Mean Corpuscular Volume 91.7 FL Mean Corpuscular Hemoglobin 30.3 PG Mean Corpuscular Hemoglobin Concent 33.1 % Red Cell Distribution Width 14.0 % Platelet Count 330 TH/MM3 Mean Platelet Volume 7.4 FL Neutrophils (%) (Auto) 46.7 % Lymphocytes (%) (Auto) 42.1 % Monocytes (%) (Auto) 8.2 % Eosinophils (%) (Auto) 2.3 % Basophils (%) (Auto) 0.7 % Neutrophils # (Auto) 3.0 TH/MM3 Lymphocytes # (Auto) 2.7 TH/MM3 Monocytes # (Auto) 0.5 TH/MM3 Eosinophils # (Auto) 0.1 TH/MM3 Basophils # (Auto) 0.0 TH/MM3 CBC Comment DIFF FINAL Differential Comment Prothrombin Time 9.7 SEC Prothromb Time International Ratio 0.9 RATIO Activated Partial Thromboplast Time 25.7 SEC Blood Urea Nitrogen 12 MG/DL Creatinine 0.73 MG/DL Random Glucose 120 MG/DL Total Protein 7.2 GM/DL Albumin 3.7 GM/DL Calcium Level 8.7 MG/DL Magnesium Level 1.5 MG/DL Alkaline Phosphatase 103 U/L Aspartate Amino Transf (AST/SGOT) 18 U/L Alanine Aminotransferase (ALT/SGPT) 17 U/L Total Bilirubin 0.4 MG/DL Sodium Level 137 MEQ/L Potassium Level 3.6 MEQ/L Chloride Level 104 MEQ/L Carbon Dioxide Level 24.9 MEQ/L Anion Gap 8 MEQ/L Estimat Glomerular Filtration Rate 101 ML/MIN Total Creatine Kinase 78 U/L Troponin I LESS THAN 0.02 NG/ML C-Reactive Protein LESS THAN 0.29 MG/DL B-Type Natriuretic Peptide 52 PG/ML Lipase 118 U/L Urine Color YELLOW Urine Turbidity CLEAR Urine pH 6.0 Urine Specific [place] 1.009 Urine Protein NEG mg/dL Urine Glucose (UA) 300 mg/dL Urine Ketones NEG mg/dL Urine Occult Blood NEG Urine Nitrite NEG Urine Bilirubin NEG Urine Urobilinogen LESS THAN 2.0 MG/DL Urine Leukocyte Esterase SMALL Urine RBC 1 /hpf Urine WBC 1 /hpf Urine Squamous Epithelial Cells 2 /hpf Microscopic Urinalysis Comment CULT NOT INDICATED Ammonia 21 MCMOL/L Vitamin B12 Level 211 PG/ML Folate 15.6 NG/ML Free Thyroxine 1.11 NG/DL Thyroid Stimulating Hormone 3rd Gen 0.494 uIU/ML Rapid Plasma Reagin NON-REACTIVE Test 09/12/17 03:49 White Blood Count 5.4 TH/MM3 Red Blood Count 3.80 MIL/MM3 Hemoglobin 11.3 GM/DL Hematocrit 34.9 % Mean Corpuscular Volume 92.0 FL Mean Corpuscular Hemoglobin 29.8 PG Mean Corpuscular Hemoglobin Concent 32.4 % Red Cell Distribution Width 14.0 % Platelet Count 280 TH/MM3 Mean Platelet Volume 7.5 FL Neutrophils (%) (Auto) 49.9 % Lymphocytes (%) (Auto) 41.3 % Monocytes (%) (Auto) 5.6 % Eosinophils (%) (Auto) 2.0 % Basophils (%) (Auto) 1.2 % Neutrophils # (Auto) 2.7 TH/MM3 Lymphocytes # (Auto) 2.3 TH/MM3 Monocytes # (Auto) 0.3 TH/MM3 Eosinophils # (Auto) 0.1 TH/MM3 Basophils # (Auto) 0.1 TH/MM3 CBC Comment DIFF FINAL Differential Comment Blood Urea Nitrogen 10 MG/DL Creatinine 0.78 MG/DL Random Glucose 491 MG/DL Calcium Level 8.6 MG/DL Sodium Level 136 MEQ/L Potassium Level 4.2 MEQ/L Chloride Level 101 MEQ/L Carbon Dioxide Level 27.9 MEQ/L Anion Gap 7 MEQ/L Estimat Glomerular Filtration Rate 93 ML/MIN Imaging Last Impressions Brain MRI 09/12/17 0000 Signed Impressions: Service Date/Time: Tuesday, September 12, 2017 08:00 - CONCLUSION: 1. No acute intracranial abnormality. 2. Mild chronic small vessel ischemic change. Indra Dwyer Jr., MD Head CT 09/11/171927 Signed Impressions: Service Date/Time: Monday, September 11, 2017 19:28 - CONCLUSION: No acute intracranial abnormality is identified. Jigar Andre MD Chest X-Ray 09/11/171927 Signed Impressions: Service Date/Time: Monday, September 11, 2017 19:58 - CONCLUSION: No acute cardiopulmonary abnormality is identified. Jigar Andre MD Objective Remarks GENERAL: This is a well-nourished, well-developed patient HEAD: Atraumatic. Normocephalic. No temporal or scalp tenderness. EYES: Extraocular motions intact. No scleral icterus. No injection or drainage. CARDIOVASCULAR: Regular rate and rhythm RESPIRATORY: Clear to auscultation. Breath sounds equal bilaterally. GASTROINTESTINAL: Abdomen soft, non-tender, nondistended. No guarding. MUSCULOSKELETAL: Extremities without clubbing, cyanosis, or edema. No joint tenderness, effusion, or edema noted. No calf tenderness. Negative Homans sign bilaterally. NEUROLOGICAL: Awake and alert. RLE weaker than left patient. Motor and sensory grossly within normal limits. Five out of 5 muscle strength in all muscle groups , with the exception of RLE weaker than L. 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 Patient had several episodes of hypoglycemia through the night then presented to the ER for evaluation and treatment Patient has been a febrile and does not have Leukocytosis UA reviewed no culture indicated CXR reviewed and reveals: No acute cardiopulmonary process CT head reviewed and reveals: No acute intracranial process MRI brain reviewed and reveals no acute intracranial abnormality. Mild chronic small vessel ischemic changes. resime home Tresiba Hold scheduled Novolog Accu checks ACHS with medium dose SSI continue home metformin 1000 mg PO BID HTN patient currently hypertensive, patient reports she normally takes her AM medication around 0730- request RN to give Losartan and Nifedipine now continue home regiment Losartan 50 mg PO daily, Nifedipine ER 60 mg PO daily increase losartan to 100 mg PO daily add clonidine 0.1 mg PO as needed for BP > 180/90 monitor BP trend Hyperlipidemia Continue home Pravastatin 20 mg PO daily DVT prophylaxis with SCDs (2) Hypoglycemia ICD Codes: E16.2 - Hypoglycemia, unspecified Plan: see above (3) Diabetes mellitus ICD Codes: E11.9 - Type 2 diabetes mellitus without complications Plan: see above (4) HTN (hypertension) ICD Codes: I10 - Essential (primary) hypertension Plan: see above Problem Qualifiers (1) Altered mental status: Qualified Codes: R41.82 - Altered mental status, unspecified Meaghan Landon Sep 13, 2017 08:39
[2017-09-13] MEDS ORDERED: cloNIDine HCL 0.1 MG TAB PO PRN (08:45)
[2017-09-13] MEDS ORDERED: LOSARTAN 50 MG TAB PO SCH (09:00)
[2017-09-13 11:19] VITALS: BP 156/72; PULSE 78; RESP 24; TEMP 98; O2SAT 97
[2017-09-13] MEDS ORDERED: LOSARTAN 50 MG TAB PO ONE (13:15)
[2017-09-13] MEDS ORDERED: COZA50TA PO (14:35)
[2017-09-13] MEDS ORDERED: NOVOINJ3 SQ (14:35)
[2017-09-13] MEDS ORDERED: NOVOLOGP2 SQ (14:40)
--- NOTE | 2017-09-13 14:43 | HHI.DCPOC ---
Discharge Care Plan Diagnosis: (1) Diabetes mellitus (2) Hypoglycemia (3) Hyperglycemia (4) HTN (hypertension) Goals to Promote Your Health * To prevent worsening of your condition and complications * To maintain your health at the optimal level Directions to Meet Your Goals Take your medications as prescribed Follow your dietary instruction Follow activity as directed Keep your appointments as scheduled Take your immunizations and boosters as scheduled If your symptoms worsen call your PCP, if no PCP go to Urgent Care Center or Emergency Room Smoking is Dangerous to Your Health. Avoid second hand smoke Call the 24-hour hour crisis hotline for domestic abuse at Meaghan Landon Sep 13, 2017 14:43
--- NOTE | 2017-09-13 14:44 | HHI.DS ---
Discharge Summary Admission Date Sep 11, 2017 at 22:24 Discharge Date: Sep 13, 2017 Admitting Diagnosis AMS, unsteady gait (1) Altered mental status ICD Codes: R41.82 - Altered mental status Status: Acute (2) Hypoglycemia ICD Codes: E16.2 - Hypoglycemia, unspecified (3) Diabetes mellitus ICD Codes: E11.9 - Type 2 diabetes mellitus without complications (4) HTN (hypertension) ICD Codes: I10 - Essential (primary) hypertension Consultants none Procedures none Brief History Ms. Maldonado is a 56 y/o AAF with a hx of type 1 diabetes, HTN, hyperlipidemia, TIA (on Plavix) and tobacco use. She works here at [employer] [facility] [employer] and last night while working she developed confusion, nausea, and disorientation. She reportedly has a history of recurrent such episodes usually related to blood sugar abnormalities. Pt states that in the past she has always had trouble controlling her blood glucose. She is currently taking NovoLog FlexPen 12 Units ACHS, Tresiba 8 Units QHS and Metformin 500 mg PO BID. Per review of ER notes patient arrived to work with confusion. The patient on arrival was noted by the staff to be leaning against the wall near the time clock. The patient reported to the nursing staff that the patient has had difficulty keeping her blood sugar up. 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 The patient's initial blood sugar on arrival here is 117. The patient was given by mouth hydration and her blood sugar came up to 129. She reports that throughout her shift she has been taking multiple glucose tablets and ingesting doughnuts to maintain her blood sugar. The patient reports that she just does not feel normal. She reports that she feels weak all over. The patient reports that whenever her blood sugar goes down she develops a right sided headache that feels like she was punched in the right eye. She also reports having nausea without vomiting. She denies having any known fevers. She has not checked her temperature at home. Patient denies any recent cough, congestion, abdominal pain, vomiting, diarrhea, urinary symptoms, uni-later weakness, numbness or tingling to her extremities, or facial droop. The patient does report having a sensation of feeling drunk and off balance although she has not been drinking any alcohol. CBC/BMP: 09/12/17 0349 09/12/17 0349 Significant Findings Laboratory Tests Test 09/11/17 19:35 09/11/17 20:37 09/11/17 20:51 09/12/17 00:00 Red Blood Count 3.99 MIL/MM3 (4.00-5.30) Monocytes (%) (Auto) 8.2 % (0.0-8.0) Prothrombin Time 9.7 SEC (9.8-11.6) Random Glucose 120 MG/DL (74-106) Troponin I LESS THAN 0.02 NG/ML Urine Glucose (UA) 300 mg/dL (NEG) Urine Leukocyte Esterase SMALL (NEG) Test 09/12/17 03:49 09/13/17 08:27 Red Blood Count 3.80 MIL/MM3 (4.00-5.30) Hemoglobin 11.3 GM/DL (11.6-15.3) Hematocrit 34.9 % (35.0-46.0) Random Glucose 491 MG/DL (74-106) PE at Discharge GENERAL: This is a well-nourished, well-developed patient HEAD: Atraumatic. Normocephalic. No temporal or scalp tenderness. EYES: Extraocular motions intact. No scleral icterus. No injection or drainage. CARDIOVASCULAR: Regular rate and rhythm RESPIRATORY: Clear to auscultation. Breath sounds equal bilaterally. GASTROINTESTINAL: Abdomen soft, non-tender, nondistended. No guarding. MUSCULOSKELETAL: Extremities without clubbing, cyanosis, or edema. No joint tenderness, effusion, or edema noted. No calf tenderness. Negative Homans sign bilaterally. NEUROLOGICAL: Awake and alert. RLE weaker than left patient. Motor and sensory grossly within normal limits. Five out of 5 muscle strength in all muscle groups , with the exception of RLE weaker than L. 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 Patient had several episodes of hypoglycemia through the night then presented to the ER for evaluation and treatment Patient has been a febrile and does not have Leukocytosis UA reviewed no culture indicated CXR reviewed and reveals: No acute cardiopulmonary process CT head reviewed and reveals: No acute intracranial process MRI brain reviewed and reveals no acute intracranial abnormality. Mild chronic small vessel ischemic changes. 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 she was supposed to be taking tresiba and ssi anyway. f/u appt tomorrow. HTN patient currently hypertensive, patient reports she normally takes her AM medication around 0730- request RN to give Losartan and Nifedipine now continue home regiment Losartan 50 mg PO daily, Nifedipine ER 60 mg PO daily increase losartan to 100 mg PO daily add clonidine 0.1 mg PO as needed for BP > 180/90 monitor BP trend Hyperlipidemia Continue home Pravastatin 20 mg PO daily DVT prophylaxis with SCDs Pt Condition on Discharge: Stable Discharge Disposition: Discharge Home Discharge Instructions DIET: Follow Instructions for: Diabetic Diet Activities you can perform: Regular-No Restrictions Follow up Referrals: Endocrinology - Office today with Dr. De La Rosa Appointment arranged for 09/14/17 2: 30PM PCP Follow-up - [address] Harris New Medications: Insulin Aspart Inj (Novolog Inj) 1,000 Unit/10 Ml Vial 2-12 UNITS SQ ACHS for Blood Sugar Management, #10 ML 0 Refills Max dose at bedtime ( ) units; sugars less than 70,(0) units; sugars 150-199,(2) units; sugars 200-249,(4) units; sugars 250-299,(7) units; sugars 300-349,(10) units; sugars greater than 349,(12)units Losartan (Cozaar) 50 Mg Tab 100 MG PO DAILY for blood pressure, #30 TAB 0 Refills Continued Medications: Clopidogrel (Plavix) 75 Mg Tab 75 MG PO DAILY for Blood Clot Prevention, #30 TAB 0 Refills Cyclobenzaprine (Flexeril) 10 Mg Tab 10 MG PO TID PRN for MUSCLE SPASM, #90 TAB 0 Refills Diazepam (Diazepam) 5 Mg Tab 5 MG PO BID PRN for ANXIETY, TAB 0 Refills Furosemide (Lasix) 20 Mg Tab 10 MG PO BID, #60 TAB 0 Refills Gabapentin (Gabapentin) 300 Mg Cap 300 MG PO BID, #60 CAP 0 Refills Insulin Degludec Inj (Tresiba Flextouch Pen Inj) 300 unit/3 ML Pen 8 UNITS SQ HS for Blood Sugar Management, #15 ML 0 Refills Metformin (Metformin) 500 Mg Tab 1000 MG PO BIDPC for Blood Sugar Management, #60 TAB 0 Refills Nifedipine ER 24 HR (Nifedipine ER 24 HR) 60 Mg Tab 60 MG PO DAILY, #30 TAB 0 Refills Pravastatin (Pravastatin) 20 Mg Tab 20 MG PO DAILY for Cholesterol Management, #30 TAB 0 Refills Zaleplon (Zaleplon) 10 Mg Cap 10 MG PO HS PRN for INSOMNIA, CAP 0 Refills Discontinued Medications: Insulin Aspart Inj (Novolog Flexpen Inj) 300 Unit/3 Ml Pen 12 UNITS SQ ACHS for Blood Sugar Management, #1 PEN 0 Refills Losartan (Losartan) 50 Mg Tab 50 MG PO DAILY for Blood Pressure Management, #30 TAB 0 Refills Meaghan Landon Sep 13, 2017 14:44 Dewey Saini MD Sep 13, 2017 15:59
[2017-09-13 17:22] LABS: HEMOGLOBIN A1a 1.3 %; HEMOGLOBIN A1b 2.8 %; HEMOGLOBIN Ao 78.5 %; HEMOGLOBIN LA1C 4.1 %
[2017-09-13] MEDS ORDERED: ZOLPIDEM TARTRATE 10 MG TAB PO PRN (21:00)
[2017-09-14] MEDS ORDERED: LOSARTAN 50 MG TAB PO SCH (09:00)
== END 2017-09-13 17:23 | disposition home or self-care (01) ==
LOC: NEPE 19:23 → NEDA 22:24 → NEPFCDU 09-12 00:12
PROVIDERS: ADMIT Hospitalist; ATTEND Hospitalist
DX: E10.649 Type 1 diabetes mellitus with hypoglycemia without coma (principal); R41.82 Altered mental status, unspecified; R26.81 Unsteadiness on feet; R53.1 Weakness; R06.02 Shortness of breath; F17.210 Nicotine dependence, cigarettes, uncomplicated; I10 Essential (primary) hypertension; E78.5 Hyperlipidemia, unspecified; G47.00 Insomnia, unspecified; Z79.4 Long term (current) use of insulin; Z86.73 Personal history of transient ischemic attack (TIA), and cerebral infarction without residual deficits; Z79.01 Long term (current) use of anticoagulants
CPT/HCPCS: 70450; 70551; 71010; 80048; 80053; 81001; 82140; 82550; 82607; 82746; 82948; 83036; 83690; 83735; 83880; 84439; 84443; 84484; 85025; 85610; 85730; 86140; 86592; 93005; 96372; 96374; 97161; 99285; G0378; G8987; G8988; G8989; J1815; J2405